=== PATIENT | male | born 1960 | race Caucasian/White ===

== ENCOUNTER 2019-10-16 08:19 | Inpatient (IN) | payer MEDICAID ==
[2019-10-16] MEDS ORDERED: LORazepam 2 MG/ML SDV IVPUSH ONE (08:29)
[2019-10-16] MEDS ORDERED: MVI, Adult with Vitamin K 10 ML, Thiamine 100 MG, Folic Acid 1 MG in Sodium Chloride 0.... IV ONE ×4 (08:29)
[2019-10-16] MEDS ORDERED: Sodium Chloride 0.9% 1,000 ML IV SCH (08:30)
--- NOTE | 2019-10-16 08:43 | EDM.PDOC ---
ED HPI GENERAL MEDICAL PROBLEM - General Chief Complaint: Chest Pain Stated Complaint: CHEST PAIN AND IS SHAKY Time Seen by Provider: 10/16/19 08:22 Source of Information: Reports: Patient History Limitations: Reports: No Limitations - History of Present Illness INITIAL COMMENTS - FREE TEXT/NARRATIVE: This is a 59-year-old male presents to the emergency room chief complaint of stating that he does not feel well. States he feels shaky and his heart is racing. Patient states he usually drinks a sixpack a day and is stopped drinking for the past 4 days. Patient also states that symptoms started after he took Cialis. Patient denies cardiac history but states he smokes a pack a day for 40 years. Patient denies shortness of breath fever or chills. Dates he has on and off chest pain that is related to when he takes a deep breath Duration: Hour(s):, Getting Worse Location: Reports: Chest Severity: Moderate Improves with: Reports: None Worsens with: Reports: Breathing Associated Symptoms: Reports: No Other Symptoms chest Pain Score (Numeric/FACES): 5 - Related Data Allergies Allergy/AdvReac Type Severity Reaction Status Date / Time No Known Allergies Allergy Verified 10/16/19 08:33 Home Meds: Home Meds lisinopriL [Lisinopril] 10 mg PO DAILY 10/16/19 [History] tadalafiL [Cialis] 1 tab PO DAILY 10/16/19 [History] ED ROS GENERAL - Review of Systems Review Of Systems: See Below Constitutional: Reports: Weakness, Fatigue HEENT: Reports: No Symptoms Respiratory: Reports: Pleuritic Chest Pain Cardiovascular: Reports: Chest Pain Endocrine: Reports: Fatigue GI/Abdominal: Reports: Decreased Appetite : Reports: No Symptoms Musculoskeletal: Reports: Muscle Pain Skin: Reports: No Symptoms Neurological: Reports: Tremors, Weakness Psychiatric: Reports: Agitation Hematologic/Lymphatic: Reports: No Symptoms Immunologic: Reports: No Symptoms ED EXAM, GENERAL - Physical Exam Exam: See Below Exam Limited By: No Limitations General Appearance: Alert, Anxious, Moderate Distress Eye Exam: Bilateral Eye: Normal Fundi, Normal Inspection Ear Exam: Bilateral Ear: Auricle Normal, Canal Normal Nose: Normal Inspection, Normal Mucosa Throat/Mouth: Normal Inspection, Normal Lips, Normal Teeth Head: Atraumatic, Normocephalic Neck: Normal Inspection, Supple, Non-Tender Respiratory/Chest: No Respiratory Distress, Lungs Clear, Normal Breath Sounds, No Accessory Muscle Use, Chest Non-Tender Cardiovascular: Normal Peripheral Pulses, Regular Rate, Rhythm, No Edema (Is tachycardic rate of 118 120), Tachycardia GI/Abdominal: Normal Bowel Sounds, Soft, Non-Tender, No Organomegaly, No Distention, No Abnormal Bruit, No Mass (Male) Exam: Deferred Rectal (Males) Exam: Deferred Back Exam: Normal Inspection, Full Range of Motion Extremities: Normal Inspection, Normal Range of Motion, Non-Tender, No Pedal Edema, Normal Capillary Refill Neurological: Alert, Oriented, CN II-XII Intact, Normal Cognition, Normal Reflexes, No Motor/Sensory Deficits Psychiatric: Normal Affect, Normal Mood Skin Exam: Warm, Dry, Intact, Normal Color Lymphatic: No Adenopathy Course - Vital Signs Text/Narrative:: 59-year-old male who presents to the emergency room with chief complaint of feeling bad heart rate is increased some chest pain and and shaking all over. Complains of chest pain when he takes a deep breath and different complaints all over his body. Patient attributes his symptoms to taken Cialis 2 days ago. Patient drinks couple 6 packs every day but has not drank in the past 4 days. Patient also smokes a pack a day for 40 years. On exam patient exhibits signs of alcohol withdrawals. Patient's heart rate is in the 120s to 130s patient seems very agitated. Patient had labs drawn which shows negative cardiac enzymes no abnormal chest x-ray and CBC and electrolytes are normal. Given 1 mg of Ativan a liter of fluids and a banana bag was started on the patient. It seemed to relieve the patient's symptoms. With this patient's history I believe the patient would benefit from patient's for alcohol withdrawals. I have discussed the case with a admitting hospitalist Dr. Horne he agrees and patient will be admitted to [facility] on telemetry bed Last Recorded V/S: Last Vital Signs Temp 98.8 F 10/16/19 08:34 Pulse 128 H 10/16/19 08:34 Resp 18 10/16/19 08:34 BP 176/122 H 10/16/19 08:34 Pulse Ox 98 10/16/19 08:34 - Orders/Labs/Meds Orders: Active Orders 24 hr Category Date Time Status Cardiac Monitoring [RC] . DIRECTED Care 10/16/19 08:29 Active EKG Documentation Completion [RC] STAT Care 10/16/19 08:28 Active UA RFX MAURICE AND CULT IF INDIC [URIN] Stat Lab 10/16/19 08:28 Ordered MVI, Adult with Vitamin K [Infuvite Adult] 10 ml Med 10/16/19 08:29 Active Thiamine [Vitamin B-1] 100 mg Folic Acid 1 mg Sodium Chloride 0.9% [Normal Saline] 1,000 ml IV STAT Sodium Chloride 0.9% [Normal Saline] 1,000 ml Med 10/16/19 08:30 Active IV STAT Medication Orders Sodium Chloride (Normal Saline) 1,000 mls @ 999 mls/hr IV STAT PRAKASH Last Admin: 10/16/19 08:40 Dose: 999 mls/hr Multivitamins/Minerals 10 ml/Thiamine HCl 100 mg/ Folic Acid 1 mg/ Sodium Chloride 1,011.2 mls @ 150 mls/hr IV STAT ONE Stop: 10/16/19 15:13 Last Admin: 10/16/19 09:14 Dose: 150 mls/hr Labs: Laboratory Tests 10/16/19 10/16/19 Range/Units 08:25 08:25 WBC 5.73 (4.0-11.0) K/uL RBC 5.23 (4.50-5.90) M/uL Hgb 18.0 H (13.0-17.0) g/dL Hct 51.9 H (38.0-50.0) % MCV 99.2 H (80.0-98.0) fL MCH 34.4 H (27.0-32.0) pg MCHC 34.7 (31.0-37.0) g/dL RDW Std Deviation 47.6 (28.0-62.0) fl RDW Coeff of Miko 13 (11.0-15.0) % Plt Count 238 (150-400) K/uL MPV 9.90 (7.40-12.00) fL Neut % (Auto) 56.4 (48.0-80.0) % Lymph % (Auto) 26.7 (16.0-40.0) % Yell % (Auto) 15.0 (0.0-15.0) % Eos % (Auto) 0.5 (0.0-7.0) % Baso % (Auto) 1.4 (0.0-1.5) % Neut # (Auto) 3.2 (1.4-5.7) K/uL Lymph # (Auto) 1.5 (0.6-2.4) K/uL Yell # (Auto) 0.9 H (0.0-0.8) K/uL Eos # (Auto) 0.0 (0.0-0.7) K/uL Baso # (Auto) 0.1 (0.0-0.1) K/uL Nucleated RBC % 0.0 /100WBC Nucleated RBCs # 0 K/uL Sodium 133 L (136-148) mmol/L Potassium 4.1 (3.5-5.1) mmol/L Chloride 94 L (98-107) mmol/L Carbon Dioxide 26.9 (21.0-32.0) mmol/L BUN 10 (7.0-18.0) mg/dL Creatinine 1.1 (0.8-1.3) mg/dL Est Cr Clr Drug Dosing 71.68 mL/min Estimated GFR (MDRD) > 60.0 ml/min Glucose 112 H (74-106) mg/dL Calcium 9.2 (8.5-10.1) mg/dL Total Bilirubin 0.9 (0.2-1.0) mg/dL AST 31 (15-37) IU/L ALT 44 (14-63) IU/L Alkaline Phosphatase 100 (46-116) U/L Troponin I < 0.050 (0.000-0.056) ng/mL Total Protein 8.3 H (6.4-8.2) g/dL Albumin 4.4 (3.4-5.0) g/dL Globulin 3.9 (2.6-4.0) g/dL Albumin/Globulin Ratio 1.1 (0.9-1.6) Meds: Medications Generic Name Dose Route Start Last Admin Trade Name Freq PRN Reason Stop Dose Admin Sodium Chloride 1,000 mls @ 999 mls/hr 10/16/19 08:30 10/16/19 08:40 Normal Saline IV 999 mls/hr STAT PRAKASH Administration Multivitamins/Minerals 10 ml/ 1,011.2 mls @ 150 mls/hr 10/16/19 08:29 09:14 Thiamine HCl 100 mg/ Folic IV 10/16/19 15:13 150 mls/hr Acid 1 mg/ Sodium Chloride STAT ONE Administration Discontinued Medications Generic Name Dose Route Start Last Admin Trade Name Erika PRN Reason Stop Dose Admin Lorazepam 1 mg 10/16/19 08:29 10/16/19 08:40 Ativan IVPUSH 10/16/19 08:30 1 mg ONETIME ONE Administration Departure - Departure Time of Disposition: 09:27 Disposition: Admitted As Inpatient 68 Condition: Good Clinical Impression: Alcohol withdrawal Referrals: PCP,None [Primary Care Provider] - Forms: ED Department Discharge Sepsis Event Note - Evaluation Sepsis Screening Result: No Definite Risk - Focused Exam Vital Signs: Vital Signs Temp Pulse Resp BP Pulse Ox 10/16/19 08:34 98.8 F 128 H 18 176/122 H 98 Date Exam was Performed: 10/16/19 Time Exam was Performed: 09:24 - My Orders Last 24 Hours: My Active Orders 10/16/19 08:28 EKG Documentation Completion [RC] STAT UA RFX MAURICE AND CULT IF INDIC [URIN] Stat 10/16/19 08:29 Cardiac Monitoring [RC] . DIRECTED MVI, Adult with Vitamin K [Infuvite Adult] 10 ml Thiamine [Vitamin B-1] 100 mg Folic Acid 1 mg Sodium Chloride 0.9% [Normal Saline] 1,000 ml IV STAT 10/16/19 08:30 Sodium Chloride 0.9% [Normal Saline] 1,000 ml IV STAT - Assessment/Plan Last 24 Hours: My Active Orders 10/16/19 08:28 EKG Documentation Completion [RC] STAT UA RFX MAURICE AND CULT IF INDIC [URIN] Stat 10/16/19 08:29 Cardiac Monitoring [RC] . DIRECTED MVI, Adult with Vitamin K [Infuvite Adult] 10 ml Thiamine [Vitamin B-1] 100 mg Folic Acid 1 mg Sodium Chloride 0.9% [Normal Saline] 1,000 ml IV STAT 10/16/19 08:30 Sodium Chloride 0.9% [Normal Saline] 1,000 ml IV STAT
[2019-10-16 08:59] LABS: BLOOD UREA NITROGEN,BUN 10 mg/dL (7.0-18.0); CARBON DIOXIDE,CO2 26.9 mmol/L (21.0-32.0); CHLORIDE,CL 94 mmol/L (98-107); GLUCOSE RANDOM 112 mg/dL (74-106); POTASSIUM,K 4.1 mmol/L (3.5-5.1); SODIUM,NA 133 mmol/L (136-148)
--- NOTE | 2019-10-16 09:03 | CR ---
Chest: Portable view of the chest was obtained. Comparison: No prior chest imaging is available. Minimal blunting of the right lateral costophrenic angle is seen. Lungs otherwise are clear. Heart size and mediastinum are normal. Degenerative endplate spurring is noted within the spine. Impression: 1. Blunting of the right lateral costophrenic angle. I believe that this is most likely chronic as nothing acute is otherwise seen on portable chest x-ray. Diagnostic code #2 This report was dictated in MDT
--- NOTE | 2019-10-16 09:39 | PCM.HP.2 ---
H&P History of Present Illness - General Date of Service: 10/16/19 Admit Problem/Dx: Admission Diagnosis/Problem Admission Diagnosis/Problem Alcohol withdrawal syndrome - History of Present Illness Initial Comments - Free Text/Narative: The patient is a 59 year old male with PMH of HTN and alcohol use who presented to the ER with intermittent chest pain for the past week and shakiness that started this morning. Chest pain is pressure/sharp at sternum with coughing. States he always coughs due to smoking. When he has the pain it lasts 1 min and has associated SOB and diaphoresis. Denies hx of cardiac disease or family history. Reports that he drinks a 6 pack almost daily but hasn't had a drink in 3 days. Denies hx of alcohol withdrawal or seizure. Has a history of HTN and is supposed to be taking lisinopril 10 mg daily, has been out for a few months since moving here. In the ER, work up revealed no leukocytosis but he is hemoconcentrated. Electrolyte were wnl. Troponin was negative and EKG showed sinus tachycardia with HR of 118. CXR showed no acute cardiopulmonary process. He was given dose of Ativan and his shakiness resolved and his heart rate improved. He was also started on IVF. PCP- none chest Pain Score (Numeric/FACES): 5 - Related Data Allergies/Adverse Reactions: Allergies Allergy/AdvReac Type Severity Reaction Status Date / Time No Known Allergies Allergy Verified 10/16/19 08:33 Home Medications: Home Meds lisinopriL [Lisinopril] 10 mg PO DAILY 10/16/19 [History] tadalafiL [Cialis] 1 tab PO DAILY 10/16/19 [History] Past Medical History HEENT History: Reports: None Cardiovascular History: Reports: Hypertension Respiratory History: Reports: COPD Gastrointestinal History: Reports: None Genitourinary History: Reports: None Musculoskeletal History: Reports: None Neurological History: Reports: None Psychiatric History: Reports: Depression Endocrine/Metabolic History: Reports: None Hematologic History: Reports: None Immunologic History: Reports: None Oncologic (Cancer) History: Reports: None Dermatologic History: Reports: None - Infectious Disease History Infectious Disease History: Reports: None - Past Surgical History Head Surgeries/Procedures: Reports: None HEENT Surgical History: Reports: None Cardiovascular Surgical History: Reports: None Respiratory Surgical History: Reports: None GI Surgical History: Reports: None Male Surgical History: Reports: None Endocrine Surgical History: Reports: None Neurological Surgical History: Reports: None Musculoskeletal Surgical History: Reports: None Oncologic Surgical History: Reports: None Dermatological Surgical History: Reports: None Social & Family History - Family History Family Medical History: Noncontributory - Tobacco Use Smoking Status *Q: Current Every Day Smoker Years of Tobacco use: 45 Packs/Tins Daily: 1 - Caffeine Use Caffeine Use: Reports: Coffee - Alcohol Use Days Per Week of Alcohol Use: 7 Number of Drinks Per Day: 6 Total Drinks Per Week: 42 - Recreational Drug Use Recreational Drug Use: No H&P Review of Systems - Review of Systems: Review Of Systems: See Below General: Reports: No Symptoms HEENT: Reports: No Symptoms Pulmonary: Reports: Shortness of Breath, Cough Cardiovascular: Reports: Chest Pain. Denies: Edema Gastrointestinal: Reports: No Symptoms Genitourinary: Reports: No Symptoms Musculoskeletal: Reports: No Symptoms Skin: Reports: No Symptoms Psychiatric: Reports: No Symptoms Neurological: Reports: Other (shakiness) Hematologic/Lymphatic: Reports: No Symptoms Exam - Exam Exam: See Below - Vital Signs Vital Signs: Last Vital Signs Temp 98.8 F 10/16/19 08:34 Pulse 128 H 10/16/19 08:34 Resp 18 10/16/19 08:34 BP 176/122 H 10/16/19 08:34 Pulse Ox 98 10/16/19 08:34 Weight: 81.647 kg - Exam General: Alert, Oriented, Cooperative HEENT: Conjunctiva Clear, EOMI, Mucosa Moist & Central, Posterior Pharynx Clear, Pupils Equal, Pupils Reactive Lungs: Normal Respiratory Effort, Wheezing Cardiovascular: Regular Rate, Regular Rhythm GI/Abdominal Exam: Normal Bowel Sounds, Soft, Non-Tender, No Distention Extremities: No Pedal Edema Skin: Warm, Dry, Intact Neuro Extensive - Mental Status: Alert, Oriented x3 Psychiatric: Alert, Normal Affect, Normal Mood - Patient Data Lab Results Last 24 hrs: Laboratory Results - last 24 hr 10/16/19 10/16/19 Range/Units 08:25 08:25 WBC 5.73 (4.0-11.0) K/uL RBC 5.23 (4.50-5.90) M/uL Hgb 18.0 H (13.0-17.0) g/dL Hct 51.9 H (38.0-50.0) % MCV 99.2 H (80.0-98.0) fL MCH 34.4 H (27.0-32.0) pg MCHC 34.7 (31.0-37.0) g/dL RDW Std Deviation 47.6 (28.0-62.0) fl RDW Coeff of Miko 13 (11.0-15.0) % Plt Count 238 (150-400) K/uL MPV 9.90 (7.40-12.00) fL Neut % (Auto) 56.4 (48.0-80.0) % Lymph % (Auto) 26.7 (16.0-40.0) % [place] % (Auto) 15.0 (0.0-15.0) % Eos % (Auto) 0.5 (0.0-7.0) % Baso % (Auto) 1.4 (0.0-1.5) % Neut # (Auto) 3.2 (1.4-5.7) K/uL Lymph # (Auto) 1.5 (0.6-2.4) K/uL [place] # (Auto) 0.9 H (0.0-0.8) K/uL Eos # (Auto) 0.0 (0.0-0.7) K/uL Baso # (Auto) 0.1 (0.0-0.1) K/uL Nucleated RBC % 0.0 /100WBC Nucleated RBCs # 0 K/uL Sodium 133 L (136-148) mmol/L Potassium 4.1 (3.5-5.1) mmol/L Chloride 94 L (98-107) mmol/L Carbon Dioxide 26.9 (21.0-32.0) mmol/L BUN 10 (7.0-18.0) mg/dL Creatinine 1.1 (0.8-1.3) mg/dL Est Cr Clr Drug Dosing 71.68 mL/min Estimated GFR (MDRD) > 60.0 ml/min Glucose 112 H (74-106) mg/dL Calcium 9.2 (8.5-10.1) mg/dL Total Bilirubin 0.9 (0.2-1.0) mg/dL AST 31 (15-37) IU/L ALT 44 (14-63) IU/L Alkaline Phosphatase 100 (46-116) U/L Troponin I < 0.050 (0.000-0.056) ng/mL Total Protein 8.3 H (6.4-8.2) g/dL Albumin 4.4 (3.4-5.0) g/dL Globulin 3.9 (2.6-4.0) g/dL Albumin/Globulin Ratio 1.1 (0.9-1.6) Result Diagrams: 10/16/19 08:25 10/16/19 08:25 Sepsis Event Note - Evaluation Sepsis Screening Result: No Definite Risk - Focused Exam Vital Signs: Vital Signs Temp Pulse Resp BP Pulse Ox 10/16/19 08:34 98.8 F 128 H 18 176/122 H 98 Date Exam was Performed: 10/16/19 Time Exam was Performed: 09:40 Problem List Initiated/Reviewed/Updated: Yes Orders Last 24hrs: Active Orders 24 hr Category Date Time Status Admission Status [Patient Status] [ADT] Stat ADT 10/16/19 09:29 Active Cardiac Monitoring [RC] . DIRECTED Care 10/16/19 08:29 Active EKG Documentation Completion [RC] STAT Care 10/16/19 08:28 Active UA RFX MAURICE AND CULT IF INDIC [URIN] Stat Lab 10/16/19 08:28 Ordered MVI, Adult with Vitamin K [Infuvite Adult] 10 ml Med 10/16/19 08:29 Active Thiamine [Vitamin B-1] 100 mg Folic Acid 1 mg Sodium Chloride 0.9% [Normal Saline] 1,000 ml IV STAT Sodium Chloride 0.9% [Normal Saline] 1,000 ml Med 10/16/19 08:30 Active IV STAT Medication Orders Sodium Chloride (Normal Saline) 1,000 mls @ 999 mls/hr IV STAT PRAKASH Last Admin: 10/16/19 08:40 Dose: 999 mls/hr Multivitamins/Minerals 10 ml/Thiamine HCl 100 mg/ Folic Acid 1 mg/ Sodium Chloride 1,011.2 mls @ 150 mls/hr IV STAT ONE Stop: 10/16/19 15:13 Last Admin: 10/16/19 09:14 Dose: 150 mls/hr Assessment/Plan Comment:: 1. Admit to inpatient 2. Code status- full 3. Vitals per routine 4. I/Os per routine 5. Diet- regular 6. DVT prophylaxis with lovenox 7. Chest pain- will monitor on telemetry and trend troponins 8. Alcohol withdrawal- CIWA/Ativan protocol. Will start Thiamine and folic acid. Continue IVF. 9. HTN-Continue home lisinopril
[2019-10-16] MEDS ORDERED: Ondansetron 4 MG/2 ML SDV IVPUSH PRN (10:00)
[2019-10-16] MEDS ORDERED: Albuterol/Ipratropium 3.0-0.5 MG/3 ML Neb Soln NEB PRN (10:00)
[2019-10-16] MEDS ORDERED: Acetaminophen 325 MG Tab PO PRN (10:00)
[2019-10-16] MEDS ORDERED: LORazepam 2 MG/ML SDV IV PRN (10:00)
[2019-10-16] MEDS ORDERED: LORazepam 1 MG Tab PO PRN (10:03)
[2019-10-16] MEDS: Lisinopril 10 MG Tab PO SCH (10:45)
[2019-10-16] MEDS: Enoxaparin 40 MG/0.4 ML Syringe SUBCUT SCH (10:46)
[2019-10-16] MEDS: Sodium Chloride 0.9% 1,000 ML IV SCH (15:48)
[2019-10-16] MEDS ORDERED: Thiamine 100 MG Tab PO SCH (21:00)
[2019-10-16] MEDS ORDERED: Folic Acid 1 MG Tab PO SCH (21:00)
[2019-10-17] MEDS: Sodium Chloride 0.9% 1,000 ML IV SCH ×2 (01:08→08:46)
[2019-10-17 06:15] LABS: BLOOD UREA NITROGEN,BUN 11 mg/dL (7.0-18.0); CARBON DIOXIDE,CO2 25.6 mmol/L (21.0-32.0); CHLORIDE,CL 102 mmol/L (98-107); GLUCOSE RANDOM 102 mg/dL (74-106); SODIUM,NA 135 mmol/L (136-148)
[2019-10-17] MEDS: Lisinopril 10 MG Tab PO SCH (08:32)
[2019-10-17] MEDS: Enoxaparin 40 MG/0.4 ML Syringe SUBCUT SCH (09:23)
--- NOTE | 2019-10-17 10:57 | PCM.DCSUM1 ---
<Eloise Hartley - Last Filed: 10/17/19 11:15> Discharge Summary - Hospital Course HPI Initial Comments: Admission Date: 10/16/19 Discharge Date: 10/17/19 Admission Diagnosis: 1. Chest pain 2. Alcohol withdrawal 3. HTN Discharge Diagnosis: 1. Chest pain- resolved 2. Alcohol withdrawal- resolved 3. HTN Procedures: None Consults: None Hospital Course: The patient is a 59 year old male with PMH of HTN and alcohol use who presented to the ER with intermittent chest pain for the past week and shakiness that started day of admission. Reported that he drinks a 6 pack almost daily but hasn't had a drink in 3 days. Denied hx of alcohol withdrawal or seizure. In the ER, work up revealed no leukocytosis but he is hemoconcentrated. Electrolyte were wnl. Troponin was negative and EKG showed sinus tachycardia with HR of 118. CXR showed no acute cardiopulmonary process. He was given dose of Ativan and his shakiness resolved and his heart rate improved. He was also started on IVF. He was admitted to the medical floor. For his chest pain, troponins were trended and negative x 3. He was monitored on telemetry without any significant events. For his alcohol use, he was placed on CIWAA/Ativan protocol and started on thiamine and folic acid. He did not require any Ativan while admitted. He was continued on his home lisinopril. By day of discharge, symptoms had improved, and he was requesting discharge. Disposition: Home Discharge Condition: vitals stable, tolerating oral diet, ambulating without difficulty, symptom improvement Discharge Instructions: regular diet as tolerated, avoid alcohol, activity as tolerated, take medications as prescribed. Symptoms to report to physician include fever/chills, chest pain, shortness of breath, abdominal pain, erythema , drainage/discharge, or not improving as expected. Discharge Medications: Lisinopril 20 mg po daily Follow-up: 1. PCP- Marjorie 2. Outpatient stress test - Discharge Data Discharge Date: 10/17/19 Discharge Disposition: Home, Self-Care 01 Condition: Fair - Referral to Home Health Primary Care Physician: PCP None - Patient Instructions Diet: Heart Healthy Diet, No Alcoholic Beverages Activity: As Tolerated Showering/Bathing: May Shower Notify Provider of: Fever, Increased Pain, Swelling and Redness, Drainage, Nausea and/or Vomiting Other/Special Instructions: Additional symptoms include chest pain, shortness of breath, or abdominal pain. You will be set up with a outpatient stress test. - Discharge Plan *PRESCRIPTION DRUG MONITORING PROGRAM REVIEWED*: No *COPY OF PRESCRIPTION DRUG MONITORING REPORT IN PATIENT COURTNEY: No Prescriptions/Med Rec: lisinopriL [Prinivil] 20 mg PO DAILY 30 Days #30 tablet Home Medications: Home Meds lisinopriL [Lisinopril] 10 mg PO DAILY 10/16/19 [History] lisinopriL [Prinivil] 20 mg PO DAILY 30 Days #30 tablet 10/17/19 [Rx] Patient Handouts: Lisinopril tablets, Alcohol Withdrawal Syndrome, [id number] Referrals: Rosa Amador NP [Nurse Practitioner] - 10/23/19 2:45 pm - Discharge Summary/Plan Comment DC Time >30 min.: No - Patient Data Vitals - Most Recent: Last Vital Signs Temp 98.2 F 10/17/19 08:00 Pulse 76 10/17/19 08:00 Resp 16 10/17/19 08:00 BP 134/95 H 10/17/19 09:22 Pulse Ox 94 L 10/17/19 04:00 Weight - Most Recent: 83.869 kg I&O - Last 24 hours: Intake & Output 10/16/19 10/17/19 10/17/19 22:59 06:59 14:59 Intake Total 1380 2290 Output Total 2800 Balance 1380 -510 Lab Results - Last 24 hrs: Laboratory Results - last 24 hr 10/16/19 10/16/19 10/16/19 Range/Units 11:22 14:08 20:05 WBC (4.0-11.0) K/uL RBC (4.50-5.90) M/uL Hgb (13.0-17.0) g/dL Hct (38.0-50.0) % MCV (80.0-98.0) fL MCH (27.0-32.0) pg MCHC (31.0-37.0) g/dL RDW Std Deviation (28.0-62.0) fl RDW Coeff of Miko (11.0-15.0) % Plt Count (150-400) K/uL MPV (7.40-12.00) fL Neut % (Auto) (48.0-80.0) % Lymph % (Auto) (16.0-40.0) % [place] % (Auto) (0.0-15.0) % Eos % (Auto) (0.0-7.0) % Baso % (Auto) (0.0-1.5) % Neut # (Auto) (1.4-5.7) K/uL Lymph # (Auto) (0.6-2.4) K/uL [place] # (Auto) (0.0-0.8) K/uL Eos # (Auto) (0.0-0.7) K/uL Baso # (Auto) (0.0-0.1) K/uL Nucleated RBC % /100WBC Nucleated RBCs # K/uL Sodium (136-148) mmol/L Potassium (3.5-5.1) mmol/L Chloride (98-107) mmol/L Carbon Dioxide (21.0-32.0) mmol/L BUN (7.0-18.0) mg/dL Creatinine (0.8-1.3) mg/dL Est Cr Clr Drug Dosing mL/min Estimated GFR (MDRD) ml/min Glucose (74-106) mg/dL Calcium (8.5-10.1) mg/dL Troponin I < 0.050 < 0.050 (0.000-0.056) ng/mL Urine Color YELLOW Urine Appearance CLEAR Urine pH 6.5 (5.0-8.0) Ur Specific [place] 1.015 (1.001-1.035) Urine Protein NEGATIVE (NEGATIVE) mg/dL Urine Glucose (UA) NEGATIVE (NEGATIVE) mg/dL Urine Ketones 15 H (NEGATIVE) mg/dL Urine Occult Blood NEGATIVE (NEGATIVE) Urine Nitrite NEGATIVE (NEGATIVE) Urine Bilirubin NEGATIVE (NEGATIVE) Urine Urobilinogen 0.2 (<2.0) EU/dL Ur Leukocyte Esterase NEGATIVE (NEGATIVE) 10/17/19 10/17/19 Range/Units 05:35 05:35 WBC 4.09 (4.0-11.0) K/uL RBC 4.47 L (4.50-5.90) M/uL Hgb 15.0 (13.0-17.0) g/dL Hct 44.7 (38.0-50.0) % MCV 100.0 H (80.0-98.0) fL MCH 33.6 H (27.0-32.0) pg MCHC 33.6 (31.0-37.0) g/dL RDW Std Deviation 48.4 (28.0-62.0) fl RDW Coeff of Miko 13 (11.0-15.0) % Plt Count 216 (150-400) K/uL MPV 10.10 (7.40-12.00) fL Neut % (Auto) 48.9 (48.0-80.0) % Lymph % (Auto) 32.8 (16.0-40.0) % [place] % (Auto) 15.6 H (0.0-15.0) % Eos % (Auto) 2.0 (0.0-7.0) % Baso % (Auto) 0.7 (0.0-1.5) % Neut # (Auto) 2.0 (1.4-5.7) K/uL Lymph # (Auto) 1.3 (0.6-2.4) K/uL [place] # (Auto) 0.6 (0.0-0.8) K/uL Eos # (Auto) 0.1 (0.0-0.7) K/uL Baso # (Auto) 0.0 (0.0-0.1) K/uL Nucleated RBC % 0.0 /100WBC Nucleated RBCs # 0 K/uL Sodium 135 L (136-148) mmol/L Potassium 4.0 (3.5-5.1) mmol/L Chloride 102 (98-107) mmol/L Carbon Dioxide 25.6 (21.0-32.0) mmol/L BUN 11 (7.0-18.0) mg/dL Creatinine 0.9 (0.8-1.3) mg/dL Est Cr Clr Drug Dosing 87.61 mL/min Estimated GFR (MDRD) > 60.0 ml/min Glucose 102 (74-106) mg/dL Calcium 8.2 L (8.5-10.1) mg/dL Troponin I (0.000-0.056) ng/mL Urine Color Urine Appearance Urine pH (5.0-8.0) Ur Specific [place] (1.001-1.035) Urine Protein (NEGATIVE) mg/dL Urine Glucose (UA) (NEGATIVE) mg/dL Urine Ketones (NEGATIVE) mg/dL Urine Occult Blood (NEGATIVE) Urine Nitrite (NEGATIVE) Urine Bilirubin (NEGATIVE) Urine Urobilinogen (<2.0) EU/dL Ur Leukocyte Esterase (NEGATIVE) Med Orders - Current: Current Medications Acetaminophen (Tylenol) 650 mg PO Q4H PRN PRN Reason: Pain/Fever Albuterol/Ipratropium (Duoneb 3.0-0.5 Mg/3 Ml) 3 ml NEB Q4HRRT PRN PRN Reason: Wheezing Last Admin: 10/17/19 08:22 Dose: 3 ml Enoxaparin Sodium (Lovenox) 40 mg SUBCUT Q24H [facility] Last Admin: 10/17/19 09:23 Dose: 40 mg Folic Acid (Folic Acid) 1 mg PO BEDTIME PRAKASH Last Admin: 10/16/19 20:32 Dose: 1 mg Sodium Chloride (Normal Saline) 1,000 mls @ 999 mls/hr IV STAT PRAKASH Last Admin: 10/16/19 08:40 Dose: 999 mls/hr Sodium Chloride (Normal Saline) 1,000 mls @ 125 mls/hr IV STAT PRAKASH Last Admin: 10/17/19 08:46 Dose: 125 mls/hr Lisinopril (Prinivil) 10 mg PO DAILY [facility] Last Admin: 10/17/19 08:32 Dose: 10 mg Lorazepam (Ativan) 0 mg IV Q4H PRN; Protocol PRN Reason: Withdrawal Symptoms Lorazepam (Ativan) 0 mg PO Q4H PRN; Protocol PRN Reason: Withdrawal Symptoms Ondansetron HCl (Zofran) 4 mg IVPUSH Q4H PRN PRN Reason: Nausea/Vomiting Thiamine HCl (Vitamin B-1) 100 mg PO BEDTIME PRAKASH Last Admin: 10/16/19 20:32 Dose: 100 mg Discontinued Medications Multivitamins/Minerals 10 ml/Thiamine HCl 100 mg/ Folic Acid 1 mg/ Sodium Chloride 1,011.2 mls @ 150 mls/hr IV STAT ONE Stop: 10/16/19 15:13 Last Admin: 10/16/19 09:14 Dose: 150 mls/hr Lorazepam (Ativan) 1 mg IVPUSH ONETIME ONE Stop: 10/16/19 08:30 Last Admin: 10/16/19 08:40 Dose: 1 mg <Minh Horne J - Last Filed: 10/19/19 19:05> Discharge Summary - Referral to Home Health Primary Care Physician: PCP None - Patient Data Vitals - Most Recent: Last Vital Signs Temp 36.8 C 10/17/19 08:00 Pulse 76 10/17/19 08:00 Resp 16 10/17/19 08:00 BP 134/95 H 10/17/19 09:22 Pulse Ox 94 L 10/17/19 04:00 Med Orders - Current: Current Medications Discontinued Medications Acetaminophen (Tylenol) 650 mg PO Q4H PRN PRN Reason: Pain/Fever Albuterol/Ipratropium (Duoneb 3.0-0.5 Mg/3 Ml) 3 ml NEB Q4HRRT PRN PRN Reason: Wheezing Last Admin: 10/17/19 08:22 Dose: 3 ml Enoxaparin Sodium (Lovenox) 40 mg SUBCUT Q24H [facility] Last Admin: 10/17/19 09:23 Dose: 40 mg Folic Acid (Folic Acid) 1 mg PO BEDTIME [facility] Last Admin: 10/16/19 20:32 Dose: 1 mg Sodium Chloride (Normal Saline) 1,000 mls @ 999 mls/hr IV STAT [facility] Last Admin: 10/16/19 08:40 Dose: 999 mls/hr Multivitamins/Minerals 10 ml/Thiamine HCl 100 mg/ Folic Acid 1 mg/ Sodium Chloride 1,011.2 mls @ 150 mls/hr IV STAT ONE Stop: 10/16/19 15:13 Last Admin: 10/16/19 09:14 Dose: 150 mls/hr Sodium Chloride (Normal Saline) 1,000 mls @ 125 mls/hr IV STAT PRAKASH Last Admin: 10/17/19 08:46 Dose: 125 mls/hr Lisinopril (Prinivil) 10 mg PO DAILY [facility] Last Admin: 10/17/19 08:32 Dose: 10 mg Lorazepam (Ativan) 1 mg IVPUSH ONETIME ONE Stop: 10/16/19 08:30 Last Admin: 10/16/19 08:40 Dose: 1 mg Lorazepam (Ativan) 0 mg IV Q4H PRN; Protocol PRN Reason: Withdrawal Symptoms Lorazepam (Ativan) 0 mg PO Q4H PRN; Protocol PRN Reason: Withdrawal Symptoms Ondansetron HCl (Zofran) 4 mg IVPUSH Q4H PRN PRN Reason: Nausea/Vomiting Thiamine HCl (Vitamin B-1) 100 mg PO BEDTIME PRAKASH Last Admin: 10/16/19 20:32 Dose: 100 mg - Free Text/Narrative Note: I have seen and examined the patient. I have discussed findings and treatment plan with resident. I agree with the assessment and plan as outlined in the following note.
== END 2019-10-17 12:30 | disposition home or self-care (01) | DRG 897 ==
LOC: MW.ED 08:19 → MW.MS 09:46
PROVIDERS: ADMIT Internal Medicine; ATTEND Internal Medicine
DX: F10.239 Alcohol dependence with withdrawal, unspecified (principal); R07.89 Other chest pain; J44.9 Chronic obstructive pulmonary disease, unspecified; I10 Essential (primary) hypertension; F17.210 Nicotine dependence, cigarettes, uncomplicated; R00.0 Tachycardia, unspecified; Z79.899 Other long term (current) drug therapy
CPT/HCPCS: 36415; 71045; 71045-26; 80048; 80053; 81003; 84484; 85025; 93005; 94640; 96374; 96375; 99284; 99285-25; A9270-GY; J1650; J2060; J3411; J7030; J7620-GY

== ENCOUNTER 2020-03-21 13:24 | Emergency (ER) | payer MEDICAID ==
--- NOTE | 2020-03-21 15:16 | EDM.PDOC ---
ED HPI GENERAL MEDICAL PROBLEM - General Chief Complaint: Skin Complaint Stated Complaint: RASH Time Seen by Provider: 03/21/20 15:05 - History of Present Illness INITIAL COMMENTS - FREE TEXT/NARRATIVE: History of present illness: Patient presents with a rash on his arms and trunk and also concerns about a rash on his groin. 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 He denies any fever chills he denies any IV drug abuse he denies any cough congestion runny nose no difficulty breathing no difficulty with swallowing. There are no new medications nothing makes the itching better or worse has tried several [id number] ointments Review of systems: As per history of present illness and below otherwise all systems reviewed and negative. Past medical history: As per history of present illness and as reviewed below otherwise noncontributory. Surgical history: As per history of present illness and as reviewed below otherwise noncontributory. Social history: No reported history of drug or alcohol abuse. Family history: As per history of present illness and as reviewed below otherwise noncontributory. Physical exam: HEENT: Atraumatic, normocephalic, pupils reactive, negative for conjunctival pallor or scleral icterus, mucous membranes moist, throat clear, neck supple, nontender, trachea midline. Lungs: Clear to auscultation, breath sounds equal bilaterally, chest nontender. Heart: S1S2, regular, negative for clicks, rubs, or JVD. Abdomen: Soft, nondistended, nontender. Negative for masses or hepatosplenomegaly. Negative for costovertebral tenderness. Pelvis: Stable nontender. Genitourinary: The skin of the genitourinary region is excoriated cracked or reddened with satellite lesions consistent with a tinea infection. Rectal: Deferred. Extremities: Atraumatic, negative for cords or calf pain. Neurovascular unremarkable. Neuro: Awake, alert, oriented. Cranial nerves II through XII unremarkable. Cerebellum unremarkable. Motor and sensory unremarkable throughout. Exam n onfocal. Skin: Diffuse maculopapular rashes that have been excoriated on the upper extremities and trunk. There is no petechia the lesions are blanchable Diagnostics: [] Therapeutics: [] Impression: Tinea cruris and contact dermatitis both [] Plan: Patient be discharged home with instructions to avoid any substances while working [] Definitive disposition and diagnosis as appropriate pending reevaluation and review of above. - Related Data Allergies Allergy/AdvReac Type Severity Reaction Status Date / Time No Known Allergies Allergy Verified 10/16/19 10:24 Home Meds: Home Meds lisinopriL [Prinivil] 20 mg PO DAILY 30 Days #30 tablet 10/17/19 [Rx] Past Medical History HEENT History: Reports: None Cardiovascular History: Reports: Hypertension Respiratory History: Reports: COPD Gastrointestinal History: Reports: None Genitourinary History: Reports: None Musculoskeletal History: Reports: None Neurological History: Reports: None Psychiatric History: Reports: Depression Endocrine/Metabolic History: Reports: None Hematologic History: Reports: None Immunologic History: Reports: None Oncologic (Cancer) History: Reports: None Dermatologic History: Reports: None - Infectious Disease History Infectious Disease History: Reports: Chicken Pox - Past Surgical History Head Surgeries/Procedures: Reports: None HEENT Surgical History: Reports: None Cardiovascular Surgical History: Reports: None Respiratory Surgical History: Reports: None GI Surgical History: Reports: None Male Surgical History: Reports: None Endocrine Surgical History: Reports: None Neurological Surgical History: Reports: None Musculoskeletal Surgical History: Reports: None Oncologic Surgical History: Reports: None Dermatological Surgical History: Reports: None Social & Family History - Family History Family Medical History: Noncontributory - Caffeine Use Caffeine Use: Reports: Coffee, Soda ED ROS GENERAL - Review of Systems Review Of Systems: See Below ED EXAM, SKIN/RASH Exam: See Below Course - Vital Signs Text/Narrative:: Patient be discharged home with ciclopirox for his groin and with Atarax for his itching and prednisone for the itching. Appointment with his doctor on and is to follow-up there for further care It is noted the patient is tachycardic I recommended further evaluation of the tachycardia and the patient states he is just anxious and does not want any further investigations done he understands I could miss something serious he was warned. Departure - Departure Time of Disposition: 14:20 Disposition: Home, Self-Care 01 Condition: Good Clinical Impression: Contact dermatitis, Tinea cruris - Discharge Information *PRESCRIPTION DRUG MONITORING PROGRAM REVIEWED*: Not Applicable *COPY OF PRESCRIPTION DRUG MONITORING REPORT IN PATIENT COURTNEY: Not Applicable Instructions: Rash, Adult
== END 2020-03-21 14:27 | disposition home or self-care (01) ==
LOC: MW.ED 13:24
DX: B35.6 Tinea cruris (principal); L25.9 Unspecified contact dermatitis, unspecified cause; I10 Essential (primary) hypertension; J44.9 Chronic obstructive pulmonary disease, unspecified; Z79.899 Other long term (current) drug therapy
CPT/HCPCS: 99282

== ENCOUNTER 2020-06-16 08:43 | Emergency (ER) | payer MEDICAID ==
[2020-06-16] MEDS: Acetaminophen/oxyCODONE 325-5 MG Tab PO ONE (09:19)
--- NOTE | 2020-06-16 09:20 | EDM.PDOC ---
ED HPI GENERAL MEDICAL PROBLEM - General Chief Complaint: Lower Extremity Injury/Pain Stated Complaint: POSSIBLY NEEDS XRAY Time Seen by Provider: 06/16/20 08:58 Source of Information: Reports: Patient History Limitations: Reports: No Limitations - History of Present Illness INITIAL COMMENTS - FREE TEXT/NARRATIVE: Pt is a 60-year-old male who presents today for right ankle pain and swelling. Patient states that he had an operation done with 30 years ago where the hardware was placed into his ankle. He states that he has been walking around a lot more trying to get back to work and his ankle now swollen and painful. Patient denies any redness warmth or fevers or chills or nausea or vomiting. Patient again denied any trauma. Whole body Pain Score (Numeric/FACES): 7 - Related Data Allergies Allergy/AdvReac Type Severity Reaction Status Date / Time No Known Allergies Allergy Verified 06/16/20 09:00 Home Meds: Home Meds lisinopriL [Prinivil] 20 mg PO DAILY 30 Days #30 tablet 10/17/19 [Rx] Clindamycin HCl 450 mg PO Q8HR 7 Days #63 capsule 06/16/20 [Rx] Clobetasol [Clobetasol 0.05%] 1 applic TOP BID 06/16/20 [History] Triamcinolone Acetonide [Triamcinolone Acetonide 0.1% Crm] 1 applic TOP BID 06/16/20 [History] Past Medical History HEENT History: Reports: None Cardiovascular History: Reports: Hypertension Respiratory History: Reports: COPD Gastrointestinal History: Reports: None Genitourinary History: Reports: None Musculoskeletal History: Reports: None Neurological History: Reports: None Psychiatric History: Reports: Depression Endocrine/Metabolic History: Reports: None Hematologic History: Reports: None Immunologic History: Reports: None Oncologic (Cancer) History: Reports: None Dermatologic History: Reports: None - Infectious Disease History Infectious Disease History: Reports: Chicken Pox - Past Surgical History Head Surgeries/Procedures: Reports: None HEENT Surgical History: Reports: None Cardiovascular Surgical History: Reports: None Respiratory Surgical History: Reports: None GI Surgical History: Reports: None Male Surgical History: Reports: None Endocrine Surgical History: Reports: None Neurological Surgical History: Reports: None Musculoskeletal Surgical History: Reports: None Oncologic Surgical History: Reports: None Dermatological Surgical History: Reports: None Social & Family History - Family History Family Medical History: No Pertinent Family History - Caffeine Use Caffeine Use: Reports: Coffee, Soda - Recreational Drug Use Recreational Drug Use: No Review of Systems - Review of Systems Review Of Systems: See Below Constitutional: Reports: No Symptoms Eyes: Reports: No Symptoms Ears: Reports: No Symptoms Nose: Reports: No Symptoms Mouth/Throat: Reports: No Symptoms Respiratory: Reports: No Symptoms Cardiovascular: Reports: No Symptoms GI/Abdominal: Reports: No Symptoms Genitourinary: Reports: No Symptoms Musculoskeletal: Reports: Joint Pain, Joint Swelling Skin: Reports: Rash Neurological: Reports: No Symptoms Psychiatric: Reports: No Symptoms ED EXAM, GENERAL - Physical Exam Exam: See Below Exam Limited By: No Limitations General Appearance: Alert, WD/WN Respiratory/Chest: No Respiratory Distress, Lungs Clear Cardiovascular: Normal Peripheral Pulses, Regular Rate, Rhythm Peripheral Pulses: 2+: Dorsalis Pedis (L), Dorsalis Pedis (R) Extremities: Joint Swelling, Other (rt ankle is swollen and tender to touch some warmth ) Neurological: Alert, Oriented Skin Exam: Rash (to bottom of feet) Course - Vital Signs Last Recorded V/S: Last Vital Signs Temp 97.3 F 06/16/20 09:02 Pulse 114 H 06/16/20 09:02 Resp 17 06/16/20 09:02 BP 148/102 H 06/16/20 09:02 Pulse Ox 98 06/16/20 09:02 - Orders/Labs/Meds Labs: Laboratory Tests 06/16/20 06/16/20 06/16/20 Range/Units 09:26 09:26 09:26 WBC 11.81 H (4.0-11.0) K/uL RBC 4.33 L (4.50-5.90) M/uL Hgb 14.3 (13.0-17.0) g/dL Hct 42.2 (38.0-50.0) % MCV 97.5 (80.0-98.0) fL MCH 33.0 H (27.0-32.0) pg MCHC 33.9 (31.0-37.0) g/dL RDW Std Deviation 43.6 (28.0-62.0) fl RDW Coeff of Miko 13 (11.0-15.0) % Plt Count 298 (150-400) K/uL MPV 9.50 (7.40-12.00) fL Neut % (Auto) 80.7 H (48.0-80.0) % Lymph % (Auto) 9.4 L (16.0-40.0) % [place] % (Auto) 8.2 (0.0-15.0) % Eos % (Auto) 1.4 (0.0-7.0) % Baso % (Auto) 0.3 (0.0-1.5) % Neut # (Auto) 9.5 H (1.4-5.7) K/uL Lymph # (Auto) 1.1 (0.6-2.4) K/uL [place] # (Auto) 1.0 H (0.0-0.8) K/uL Eos # (Auto) 0.2 (0.0-0.7) K/uL Baso # (Auto) 0.0 (0.0-0.1) K/uL ESR 56 H (0-19) mm/hr Sodium 135 L (136-148) mmol/L Potassium 4.3 (3.5-5.1) mmol/L Chloride 98 (98-107) mmol/L Carbon Dioxide 25.1 (21.0-32.0) mmol/L BUN 10 (7.0-18.0) mg/dL Creatinine 0.9 (0.8-1.3) mg/dL Est Cr Clr Drug Dosing 86.56 mL/min Estimated GFR (MDRD) > 60.0 ml/min Glucose 105 (74-106) mg/dL Calcium 9.1 (8.5-10.1) mg/dL C-Reactive Protein 12.30 H (0.00-0.90) mg/dL Meds: Medications Discontinued Medications Generic Name Dose Route Start Last Admin Trade Name Freq PRN Reason Stop Dose Admin Oxycodone/Acetaminophen 1 tab 06/16/20 09:14 06/16/20 09:19 Percocet 325-5 Mg PO 06/16/20 09:15 1 tab ONETIME ONE Administration - Re-Assessments/Exams Free Text/Narrative Re-Assessment/Exam: 06/16/20 10:33 Pt has no pain with ranging of the joint skin above it is red and warm we will treat for cellulitis. Patient will be given strict instructions to follow-up with orthopedics this week. Departure - Departure Time of Disposition: 10:33 Disposition: Home, Self-Care 01 Condition: Good Clinical Impression: Cellulitis - Discharge Information *PRESCRIPTION DRUG MONITORING PROGRAM REVIEWED*: Not Applicable *COPY OF PRESCRIPTION DRUG MONITORING REPORT IN PATIENT COURTNEY: Not Applicable Prescriptions: Clindamycin HCl 450 mg PO Q8HR 7 Days #63 capsule Instructions: Cellulitis, Adult Referrals: Doc Yadav MD [Primary Care Provider] - Forms: ED Department Discharge Additional Instructions: The following information is given to patients seen in the emergency department who are being discharged to home. This information is to outline your options for follow-up care. We provide all patients seen in our emergency department with a follow-up referral. The need for follow-up, as well as the timing and circumstances, are variable depending upon the specifics of your emergency department visit. If you don't have a primary care physician on staff, we will provide you with a referral. We always advise you to contact your personal physician following an emergency department visit to inform them of the circumstance of the visit and for follow-up with them and/or the need for any referrals to a consulting specialist. The emergency department will also refer you to a specialist when appropriate. This referral assures that you have the opportunity for follow-up care with a specialist. All of these measure are taken in an effort to provide you with optimal care, which includes your follow-up. Under all circumstances we always encourage you to contact your private physician who remains a resource for coordinating your care. When calling for follow-up care, please make the office aware that this follow-up is from your recent emergency room visit. If for any reason you are refused follow-up, please contact the [facility] Emergency Department at and asked to speak to the emergency department charge nurse. Please follow up with your primary care physician. If you do not have a primary care physician, see below: [facility] - Orthopedic Clinic Professional Building [address] [place] [address], [address] [place] [address] You can follow-up with orthopedics this week. If you have any additional Plaints please return to the ED. Your antibiotics as prescribed. Sepsis Event Note (ED) - Evaluation Sepsis Screening Result: No Definite Risk - Focused Exam Vital Signs: Vital Signs Temp Pulse Resp BP Pulse Ox 06/16/20 09:02 97.3 F 114 H 17 148/102 H 98 - Assessment/Plan Assessment:: Pt is a 60-year-old male who had previous hardware placed in his ankle almost 30 years ago presents today with ankle pain and swelling had no recent injuries to the ankle patient has been standing a lot more trying to get back to work. The ankle is swollen and firm. Patient has good pulses. Will obtain labs and x-ray and reassess.
[2020-06-16 09:56] LABS: BLOOD UREA NITROGEN,BUN 10 mg/dL (7.0-18.0); CARBON DIOXIDE,CO2 25.1 mmol/L (21.0-32.0); CHLORIDE,CL 98 mmol/L (98-107); GLUCOSE RANDOM 105 mg/dL (74-106); POTASSIUM,K 4.3 mmol/L (3.5-5.1); SODIUM,NA 135 mmol/L (136-148)
--- NOTE | 2020-06-16 10:00 | CR ---
HISTORY: Ankle pain and swelling. Remote fracture. TECHNIQUE: Right ankle 3 views. COMPARISON: None. FINDINGS: Distal fibula plate and screws. [employer] malleolus plate and screws. Medial malleolus screw. Hardware appears intact. No acute fracture. 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 Plantar calcaneal enthesophyte. No erosions. Soft tissue swelling. IMPRESSION: Soft tissue swelling. No acute bone abnormality. 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 Dictated by Kip Alcantara MD @ Jun 16 2020 9:57AM Signed by Dr. Kip Alcantara @ Jun 16 2020 9:59AM
[2020-06-16] MEDS: Clindamycin HCl 150 MG Cap PO STA (10:41)
== END 2020-06-16 10:44 | disposition home or self-care (01) ==
LOC: MW.ED 08:43
DX: L03.115 Cellulitis of right lower limb (principal); I10 Essential (primary) hypertension; J44.9 Chronic obstructive pulmonary disease, unspecified; Z79.899 Other long term (current) drug therapy
CPT/HCPCS: 36415; 73610; 80048; 85025; 85652; 86140; 99283; A9270

== ENCOUNTER 2020-08-16 12:01 | Emergency (ER) | payer SELFPAY ==
[2020-08-16] MEDS ORDERED: Sodium Chloride 0.9% 2.5 ML Syringe FLUSH PRN (12:54)
[2020-08-16] MEDS ORDERED: Sodium Chloride 0.9% 10 ML Syringe FLUSH PRN (12:54)
--- NOTE | 2020-08-16 13:01 | EDM.PDOC ---
ED HPI GENERAL MEDICAL PROBLEM - General Chief Complaint: Skin Complaint Stated Complaint: CELLULITIS Time Seen by Provider: 08/16/20 12:44 - History of Present Illness INITIAL COMMENTS - FREE TEXT/NARRATIVE: History of present illness: The patient is dealing with redness and swelling of his right lower extremity with pain in the ankle since late April 2020. He has seen physician almost every other week and has been in the emergency room in June. The area where he had a remote injury with instrumentation and where placed in the right ankle has started having a sharp knifelike pain when he steps on it. The pain comes up through the heel. Its associated with swelling of the right lower extremity. The swelling is greatly increased. There was redness and warmth before and he has been treated once with clindamycin by my partner and twice by his primary doctor with Augmentin. The swelling and redness and pain continue to progress. Now he has mottling up to the mid thigh a plaque that looks psoriatic on the l eft ankle and blanching red rash on his extremities x4. The patient does not have systemic signs of illness. The patient saw a flame cutter for the new plaque on the left ankle and had test done. He was told they were inconclusive and he needed more test. He felt like it spent enough money already on dermatology and felt like he could not go back. The patient seems to expect that the emergency physician today can answer the questions about this multimonth illness and he has done his own research on the Internet and feels like it may be a life-threatening or limb threatening condition. I assured him I will try my best to find out what I can add or contribute to the knowledge of his condition and treatment to try to help him resolve it. [] Review of systems: As per history of present illness and below otherwise all systems reviewed and negative. Past medical history: Is not diabetic. As per history of present illness and as reviewed below otherwise noncontributory. Surgical history: As per history of present illness and as reviewed below otherwise noncontributory. Social history: Patient smokes. No reported history of drug or alcohol abuse. Family history: As per history of present illness and as reviewed below otherwise noncontributory. Physical exam: Constitutional - well developed, well-nourished and in no acute distress HEENT - normocephalic, no evidence of trauma - external nose and mouth normal - no mass in neck and no JVD - mucosae moist EYES - full EOM, PERRL, no icterus - no evidence of inflammation, injection, or drainage Respiratory - no respiratory distress, equal bilateral expansion, lungs clear to auscultation and no abnormal lung sounds Cardiovascular - Regular Rhythm with S1 and S2 appreciated and no murmur, gallop or rub. GI - abdomen soft without distension or organomegaly - normal bowel sounds - no guard or rebound Musculoskeletal swelling and tenderness of the right lower extremity from mid thigh down. Otherwise no gross deformity of long bones or joints - no tenderness, swelling or edema Neurologic - Alert and oriented times four - CN II-XII grossly intact - motor sensory and coordination symmetrically normal Psychiatric - appropriate mood and affect with normal thought content Hematologic - No petechiae or purpura - mucosa appropriate color and sclera not pale - normal nail bed color and refill Integument -there is mottling of the right lower extremity from the upper thigh down. There is redness with warmth of the lower half of the right lower extremity below the knee. There is a plaque that appears psoriatic and waxy on the left medial ankle. The patient has Yoni macules that are erythematous over both upper extremities. No evidence of trauma - normal turgor Diagnostics: [] Therapeutics: [] Impression: [] Plan: [] Definitive disposition and diagnosis as appropriate pending reevaluation and review of above. Right leg Pain Score (Numeric/FACES): 10 - Related Data Allergies Allergy/AdvReac Type Severity Reaction Status Date / Time No Known Allergies Allergy Verified 08/16/20 12:44 Home Meds: Home Meds lisinopriL [Prinivil] 20 mg PO DAILY 30 Days #30 tablet 10/17/19 [Rx] Clindamycin HCl 450 mg PO Q8HR 7 Days #63 capsule 06/16/20 [Rx] Doxycycline [Vibramycin] 100 mg PO BID #28 tab 08/16/20 [Rx] diphenhydrAMINE [Benadryl] 25 mg PO Q8H #21 cap 08/16/20 [Rx] Past Medical History HEENT History: Reports: None Cardiovascular History: Reports: Hypertension Respiratory History: Reports: COPD Gastrointestinal History: Reports: None Genitourinary History: Reports: None Musculoskeletal History: Reports: None Neurological History: Reports: None Psychiatric History: Reports: Depression Endocrine/Metabolic History: Reports: None Hematologic History: Reports: None Immunologic History: Reports: None Oncologic (Cancer) History: Reports: None Dermatologic History: Reports: None - Infectious Disease History Infectious Disease History: Reports: Chicken Pox - Past Surgical History Head Surgeries/Procedures: Reports: None HEENT Surgical History: Reports: None Cardiovascular Surgical History: Reports: None Respiratory Surgical History: Reports: None GI Surgical History: Reports: None Male Surgical History: Reports: None Endocrine Surgical History: Reports: None Neurological Surgical History: Reports: None Musculoskeletal Surgical History: Reports: None Oncologic Surgical History: Reports: None Dermatological Surgical History: Reports: None Social & Family History - Family History Family Medical History: No Pertinent Family History - Tobacco Use Tobacco Use Status *Q: Current Every Day Tobacco User Years of Tobacco use: 40 Packs/Tins Daily: 0.7 - Caffeine Use Caffeine Use: Reports: Coffee - Recreational Drug Use Recreational Drug Use: No ED ROS GENERAL - Review of Systems Review Of Systems: Comprehensive ROS is negative, except as noted in HPI. ED EXAM, GENERAL - Physical Exam Exam: See Below Free Text/Narrative:: His exam is in the HPI Course - Vital Signs Text/Narrative:: Upper extremities and mottling of the thigh slightly improved after Benadryl. Last Recorded V/S: Last Vital Signs Temp 36.5 C 08/16/20 12:37 Pulse 113 H 08/16/20 12:37 Resp 20 08/16/20 12:37 BP 138/104 H 08/16/20 12:37 Pulse Ox 96 08/16/20 12:37 - Orders/Labs/Meds Orders: Active Orders 24 hr Category Date Time Status CULTURE BLOOD [BC] Stat Lab 08/16/20 13:00 Received CULTURE BLOOD [BC] Stat Lab 08/16/20 13:18 Received Sodium Chloride 0.9% [Saline Flush] Med 08/16/20 12:54 Active 10 ml FLUSH ASDIRECTED PRN Sodium Chloride 0.9% [Saline Flush] Med 08/16/20 12:54 Active 2.5 ml FLUSH ASDIRECTED PRN Blood Culture x2 Reflex Set [OM.PC] Stat Oth 08/16/20 12:55 Ordered Saline Lock Insert [OM.PC] Stat Oth 08/16/20 12:54 Ordered Medication Orders Sodium Chloride (Sodium Chloride 0.9% 10 Ml Syringe) 10 ml FLUSH ASDIRECTED PRN PRN Reason: Keep Vein Open Last Admin: 08/16/20 13:05 Dose: 10 ml Documented by: FERMIN Sodium Chloride (Sodium Chloride 0.9% 2.5 Ml Syringe) 2.5 ml FLUSH ASDIRECTED PRN PRN Reason: Keep Vein Open Last Admin: 08/16/20 13:04 Dose: 2.5 ml Documented by: FERMIN Labs: Laboratory Tests 08/16/20 08/16/20 08/16/20 Range/Units 12:45 12:45 12:45 WBC 8.60 (4.0-11.0) K/uL RBC 4.27 L (4.50-5.90) M/uL Hgb 14.3 (13.0-17.0) g/dL Hct 41.7 (38.0-50.0) % MCV 97.7 (80.0-98.0) fL MCH 33.5 H (27.0-32.0) pg MCHC 34.3 (31.0-37.0) g/dL RDW Std Deviation 53.2 (28.0-62.0) fl RDW Coeff of Miko 15 (11.0-15.0) % Plt Count 459 H (150-400) K/uL MPV 8.90 (7.40-12.00) fL Neut % (Auto) 70.1 (48.0-80.0) % Lymph % (Auto) 15.2 L (16.0-40.0) % Pendleton % (Auto) 11.3 (0.0-15.0) % Eos % (Auto) 2.4 (0.0-7.0) % Baso % (Auto) 1.0 (0.0-1.5) % Neut # (Auto) 6.0 H (1.4-5.7) K/uL Lymph # (Auto) 1.3 (0.6-2.4) K/uL Pendleton # (Auto) 1.0 H (0.0-0.8) K/uL Eos # (Auto) 0.2 (0.0-0.7) K/uL Baso # (Auto) 0.1 (0.0-0.1) K/uL Nucleated RBC % 0.0 /100WBC Nucleated RBCs # 0 K/uL ESR 43 H (0-19) mm/hr Lactate (0.20-2.00) mmol/L Sodium 138 (136-148) mmol/L Potassium 4.3 (3.5-5.1) mmol/L Chloride 101 (98-107) mmol/L Carbon Dioxide 26.6 (21.0-32.0) mmol/L BUN 9 (7.0-18.0) mg/dL Creatinine 0.9 (0.8-1.3) mg/dL Est Cr Clr Drug Dosing 86.56 mL/min Estimated GFR (MDRD) > 60.0 ml/min Glucose 93 (74-106) mg/dL Calcium 8.5 (8.5-10.1) mg/dL Total Bilirubin 0.1 L (0.2-1.0) mg/dL AST 25 (15-37) IU/L ALT 36 (14-63) IU/L Alkaline Phosphatase 76 (46-116) U/L C-Reactive Protein 7.30 H (0.00-0.90) mg/dL Total Protein 8.0 (6.4-8.2) g/dL Albumin 3.0 L (3.4-5.0) g/dL Globulin 5.0 H (2.6-4.0) g/dL Albumin/Globulin Ratio 0.6 L (0.9-1.6) 08/16/20 Range/Units 12:45 WBC (4.0-11.0) K/uL RBC (4.50-5.90) M/uL Hgb (13.0-17.0) g/dL Hct (38.0-50.0) % MCV (80.0-98.0) fL MCH (27.0-32.0) pg MCHC (31.0-37.0) g/dL RDW Std Deviation (28.0-62.0) fl RDW Coeff of Miko (11.0-15.0) % Plt Count (150-400) K/uL MPV (7.40-12.00) fL Neut % (Auto) (48.0-80.0) % Lymph % (Auto) (16.0-40.0) % Pendleton % (Auto) (0.0-15.0) % Eos % (Auto) (0.0-7.0) % Baso % (Auto) (0.0-1.5) % Neut # (Auto) (1.4-5.7) K/uL Lymph # (Auto) (0.6-2.4) K/uL Pendleton # (Auto) (0.0-0.8) K/uL Eos # (Auto) (0.0-0.7) K/uL Baso # (Auto) (0.0-0.1) K/uL Nucleated RBC % /100WBC Nucleated RBCs # K/uL ESR (0-19) mm/hr Lactate 1.2 (0.20-2.00) mmol/L Sodium (136-148) mmol/L Potassium (3.5-5.1) mmol/L Chloride (98-107) mmol/L Carbon Dioxide (21.0-32.0) mmol/L BUN (7.0-18.0) mg/dL Creatinine (0.8-1.3) mg/dL Est Cr Clr Drug Dosing mL/min Estimated GFR (MDRD) ml/min Glucose (74-106) mg/dL Calcium (8.5-10.1) mg/dL Total Bilirubin (0.2-1.0) mg/dL AST (15-37) IU/L ALT (14-63) IU/L Alkaline Phosphatase (46-116) U/L C-Reactive Protein (0.00-0.90) mg/dL Total Protein (6.4-8.2) g/dL Albumin (3.4-5.0) g/dL Globulin (2.6-4.0) g/dL Albumin/Globulin Ratio (0.9-1.6) Meds: Medications Generic Name Dose Route Start Last Admin Trade Name Freq PRN Reason Stop Dose Admin Sodium Chloride 10 ml 08/16/20 12:54 08/16/20 13:05 Sodium Chloride 0.9% 10 Ml Syringe FLUSH 10 ml ASDIRECTED PRN Administration Keep Vein Open Sodium Chloride 2.5 ml 08/16/20 12:54 08/16/20 13:04 Sodium Chloride 0.9% 2.5 Ml Syringe FLUSH 2.5 ml ASDIRECTED PRN Administration Keep Vein Open Discontinued Medications Generic Name Dose Route Start Last Admin Trade Name Freq PRN Reason Stop Dose Admin Dexamethasone 4 mg 08/16/20 13:57 08/16/20 14:07 Dexamethasone 10 Mg/Ml Sdv IVPUSH 08/16/20 13:58 4 mg ONETIME ONE Administration Diphenhydramine HCl 25 mg 08/16/20 13:57 08/16/20 14:08 Diphenhydramine 50 Mg/Ml Sdv IVPUSH 08/16/20 13:58 25 mg ONETIME ONE Administration Departure - Departure Time of Disposition: 14:57 Disposition: Home, Self-Care 01 Condition: Good Clinical Impression: Cellulitis - Discharge Information Prescriptions: diphenhydrAMINE [Benadryl] 25 mg PO Q8H #21 cap Doxycycline [Vibramycin] 100 mg PO BID #28 tab Instructions: Cellulitis, Adult Referrals: PCP,None [Primary Care Provider] - Forms: ED Department Discharge Additional Instructions: [facility] [address] [place] [address] [place] [address] The following information is given to patients seen in the emergency department who are being discharged to home. This information is to outline your options for follow-up care. We provide all patients seen in our emergency department with a follow-up referral. The need for follow-up, as well as the timing and circumstances, are variable depending upon the specifics of your emergency department visit. If you don't have a primary care physician on staff, we will provide you with a referral. We always advise you to contact your personal physician following an emergency department visit to inform them of the circumstance of the visit and for follow-up with them and/or the need for any referrals to a consulting specialist. The emergency department will also refer you to a specialist when appropriate. This referral assures that you have the opportunity for follow-up care with a specialist. All of these measure are taken in an effort to provide you with optimal care, which includes your follow-up. Under all circumstances we always encourage you to contact your private physician who remains a resource for coordinating your care. When calling for follow-up care, please make the office aware that this follow-up is from your recent emergency room visit. If for any reason you are refused follow-up, please contact the [facility] Emergency Department at and asked to speak to the emergency department charge nurse. Sepsis Event Note (ED) - Evaluation Sepsis Screening Result: No Definite Risk - Focused Exam Vital Signs: Vital Signs Temp Pulse Resp BP Pulse Ox 08/16/20 12:37 36.5 C 113 H 20 138/104 H 96 - My Orders Last 24 Hours: My Active Orders 08/16/20 12:54 Sodium Chloride 0.9% [Saline Flush] 10 ml FLUSH ASDIRECTED PRN Sodium Chloride 0.9% [Saline Flush] 2.5 ml FLUSH ASDIRECTED PRN Saline Lock Insert [OM.PC] Stat 08/16/20 12:55 Blood Culture x2 Reflex Set [OM.PC] Stat 08/16/20 13:00 CULTURE BLOOD [BC] Stat 08/16/20 13:18 CULTURE BLOOD [BC] Stat - Assessment/Plan Last 24 Hours: My Active Orders 08/16/20 12:54 Sodium Chloride 0.9% [Saline Flush] 10 ml FLUSH ASDIRECTED PRN Sodium Chloride 0.9% [Saline Flush] 2.5 ml FLUSH ASDIRECTED PRN Saline Lock Insert [OM.PC] Stat 08/16/20 12:55 Blood Culture x2 Reflex Set [OM.PC] Stat 08/16/20 13:00 CULTURE BLOOD [BC] Stat 08/16/20 13:18 CULTURE BLOOD [BC] Stat
[2020-08-16 13:21] LABS: BLOOD UREA NITROGEN,BUN 9 mg/dL (7.0-18.0); CARBON DIOXIDE,CO2 26.6 mmol/L (21.0-32.0); CHLORIDE,CL 101 mmol/L (98-107); GLUCOSE RANDOM 93 mg/dL (74-106); POTASSIUM,K 4.3 mmol/L (3.5-5.1); SODIUM,NA 138 mmol/L (136-148)
[2020-08-16] MEDS ORDERED: diphenhydrAMINE 50 MG/ML SDV IVPUSH ONE (13:57)
[2020-08-16] MEDS ORDERED: Dexamethasone 10 MG/ML SDV IVPUSH ONE (13:57)
--- NOTE | 2020-08-16 13:57 | US ---
CLINICAL HISTORY: 60-year-old with right lower extremity swelling and mottling. TECHNIQUE: Chavez scale, color Doppler, and compression sonography of the right lower extremity deep venous system was performed. COMPARISON: None available FINDINGS: There is no evidence for DVT in the right lower extremity. Color flow, compressibility, and respiratory variation are seen in the right lower extremity deep venous system. There is no intraluminal echogenic material within these veins to suggest thrombus. IMPRESSION: No evidence of DVT in the right lower extremity. Dictated by Enoc Brown MD @ Aug 16 2020 1:54PM Signed by Dr. Enoc Brown @ Aug 16 2020 1:54PM
== END 2020-08-16 15:06 | disposition home or self-care (01) ==
LOC: MW.ED 12:01
DX: L03.115 Cellulitis of right lower limb (principal); I10 Essential (primary) hypertension; J44.9 Chronic obstructive pulmonary disease, unspecified; Z79.899 Other long term (current) drug therapy; Z72.0 Tobacco use
CPT/HCPCS: 36415; 80053; 83605; 85025; 85652; 86140; 87040; 93971; 96374; 96375; 99284; J1100; J1200; 99282

== ENCOUNTER 2021-10-26 22:29 | Emergency (ER) | payer SELFPAY ==
[2021-10-26] MEDS: Sodium Chloride 0.9% 1,000 ML IV SCH (23:18)
[2021-10-26 23:33] LABS: ACETAMINOPHEN <2.0 ug/mL
[2021-10-26 23:37] LABS: BLOOD UREA NITROGEN,BUN 9 mg/dL (7.0-18.0); CARBON DIOXIDE,CO2 23.9 mmol/L (21.0-32.0); CHLORIDE,CL 99 mmol/L (98-107); GLUCOSE RANDOM 109 mg/dL (74-106); POTASSIUM,K 4.3 mmol/L (3.5-5.1); SODIUM,NA 135 mmol/L (136-148)
[2021-10-27] MEDS ORDERED: Norepinephrine 4 MG in Dextrose 5% in Water 246 ML IV SCH ×2 (02:15)
[2021-10-27 02:59] LABS: BLOOD UREA NITROGEN,BUN 9 mg/dL (7.0-18.0); CARBON DIOXIDE,CO2 24.6 mmol/L (21.0-32.0); CHLORIDE,CL 101 mmol/L (98-107); GLUCOSE RANDOM 93 mg/dL (74-106); POTASSIUM,K 4.2 mmol/L (3.5-5.1); SODIUM,NA 136 mmol/L (136-148)
[2021-10-27] MEDS ORDERED: chlordiazePOXIDE 25 MG Cap PO ONE (09:05)
[2021-10-27] MEDS: Sodium Chloride 0.9% 1,000 ML IV SCH (10:05)
== END 2021-10-27 14:13 ==
LOC: MW.ED 22:29
DX: F32.A Depression, unspecified (principal); R45.851 Suicidal ideations; I10 Essential (primary) hypertension; J44.9 Chronic obstructive pulmonary disease, unspecified; Z79.899 Other long term (current) drug therapy; Z20.822 Contact with and (suspected) exposure to COVID-19
CPT/HCPCS: 36415; 80048; 80053; 80143; 80179; 80305-QW; 80307; 84443; 84484; 85025; 93005; 93010; 96365; 96366; 99285; 99285-25; A9270-GY; J7030; U0002

== ENCOUNTER 2022-02-09 11:28 | Emergency (ER) | payer MEDICAID ==
[2022-02-09] MEDS ORDERED: Acetaminophen 325 MG Tab PO ONE (11:39)
[2022-02-09] MEDS ORDERED: Albuterol 0.083% 2.5 MG/3 ML Neb Soln NEB ONE (11:39)
[2022-02-09] MEDS ORDERED: Ibuprofen 400 MG Tab PO ONE (11:39)
[2022-02-09] MEDS ORDERED: Cetirizine 10 MG Tab PO ONE (11:51)
== END 2022-02-09 13:38 | disposition home or self-care (01) ==
LOC: MW.ED 11:28
DX: R06.02 Shortness of breath (principal); I10 Essential (primary) hypertension; J44.9 Chronic obstructive pulmonary disease, unspecified; Z79.899 Other long term (current) drug therapy; Z87.891 Personal history of nicotine dependence
CPT/HCPCS: 99283; A9270

== ENCOUNTER 2022-05-26 14:09 | Emergency (ER) | payer MEDICAID ==
[2022-05-26] MEDS ORDERED: Nicotine 21 MG/24 Hr Patch TRDERM ONE (15:34)
[2022-05-26 15:45] LABS: ACETAMINOPHEN <2.0 ug/mL; BLOOD UREA NITROGEN,BUN 8 mg/dL (7.0-18.0); CARBON DIOXIDE,CO2 28.9 mmol/L (21.0-32.0); CHLORIDE,CL 98 mmol/L (98-107); GLUCOSE RANDOM 96 mg/dL (74-106); POTASSIUM,K 4.1 mmol/L (3.5-5.1); SODIUM,NA 137 mmol/L (136-148)
[2022-05-26 15:47] LABS: ESTIMATED GFR 105 mL/min (>60)
[2022-05-26 16:34] LABS: CORONAVIRUS COVID-19 NAA NEGATIVE (NEGATIVE); INFLUENZA A NAA NEGATIVE (NEGATIVE); INFLUENZA B NAA NEGATIVE (NEGATIVE)
== END 2022-05-26 17:00 | disposition home or self-care (01) ==
LOC: MW.ED 14:09
DX: F32.A Depression, unspecified (principal); F10.929 Alcohol use, unspecified with intoxication, unspecified; I10 Essential (primary) hypertension; J44.9 Chronic obstructive pulmonary disease, unspecified; Z72.0 Tobacco use; Z79.899 Other long term (current) drug therapy; Y90.8 Blood alcohol level of 240 mg/100 ml or more; Z20.822 Contact with and (suspected) exposure to COVID-19
CPT/HCPCS: 0240U; 36415; 80053; 80143; 80179; 80307; 84439; 84443; 84481; 85025; 99285; A9270

== ENCOUNTER 2022-11-23 12:33 | Emergency (ER) | payer MEDICAID ==
[2022-11-23] MEDS ORDERED: Sodium Chloride 0.9% 2.5 ML Syringe FLUSH PRN (13:03)
[2022-11-23] MEDS ORDERED: Albuterol/Ipratropium 3.0-0.5 MG/3 ML Neb Soln NEB ONE (13:03)
[2022-11-23] MEDS ORDERED: Sodium Chloride 0.9% 10 ML Syringe FLUSH PRN (13:03)
[2022-11-23 13:32] LABS: BASOPHILS PERCENT AUTO 0.7 % (0.0-1.5); EOSINOPHILS ABSOLUTE AUTO 0.1 K/uL (0.0-0.7); EOSINOPHILS PERCENT AUTO 1.5 % (0.0-7.0); HEMATOCRIT 44.1 % (38.0-50.0); HEMOGLOBIN 15.5 g/dL (13.0-17.0); LYMPHOCYTES ABSOLUTE AUTO 1.7 K/uL (0.6-2.4); LYMPHOCYTES PERCENT AUTO 30.4 % (16.0-40.0); MEAN CORPUSCULAR HEMOGLOBIN 33.8 pg (27.0-32.0); MEAN CORPUSCULAR HGB CONC 35.1 g/dL (31.0-37.0); MEAN CORPUSCULAR VOLUME 96.3 fL (80.0-98.0); MONOCYTES ABSOLUTE AUTO 0.3 K/uL (0.0-0.8); NEUTROPHILS ABSOLUTE AUTO 3.4 K/uL (1.4-5.7); NEUTROPHILS PERCENT AUTO 61.4 % (48.0-80.0); NRBC ABSOLUTE 0 K/uL; PLATELET COUNT,PLT 263 K/uL (150-400); RED BLOOD CELL COUNT 4.58 M/uL (4.50-5.90); WHITE BLOOD CELL COUNT,WBC 5.49 K/uL (4.0-11.0)
[2022-11-23 13:41] LABS: INR 0.94 (0.86-1.11)
[2022-11-23 14:01] LABS: A/G RATIO 1.1 (0.9-1.6); ALBUMIN 3.7 g/dL (3.4-5.0); BILIRUBIN TOTAL 0.3 mg/dL (0.2-1.0); CALCIUM 8.9 mg/dL (8.5-10.1); CARBON DIOXIDE,CO2 27.4 mmol/L (21.0-32.0); CREATININE 0.9 mg/dL (0.8-1.3); EST CRCL DRUG DOSING (CG) 87.28 mL/min; TSH ULTRASENSITIVE 0.58 uIU/mL (0.36-3.74)
[2022-11-23] MEDS ORDERED: Iopamidol 755 Mg/ML 100 ML Bottle IVPUSH ONE (14:52)
== END 2022-11-23 16:45 | disposition other institution (70) ==
LOC: MW.ED 12:33
DX: K76.0 Fatty (change of) liver, not elsewhere classified (principal); J44.1 Chronic obstructive pulmonary disease with (acute) exacerbation; R91.8 Other nonspecific abnormal finding of lung field; I10 Essential (primary) hypertension; F17.210 Nicotine dependence, cigarettes, uncomplicated; Z79.899 Other long term (current) drug therapy
CPT/HCPCS: 36415; 71275; 74174; 80053; 83690; 83735; 84443; 84484; 85025; 85610; 93005; 99285; J3490; Q9967; 93010; 99284; J7620-GY

== ENCOUNTER 2023-02-15 14:47 | Emergency (ER) | payer MEDICAID | END 2023-02-15 15:31 | disposition left against medical advice (07) | LOC: MW.ED 14:47 | DX: Z53.21 Procedure and treatment not carried out due to patient leaving prior to being seen by health care provider (principal) ==

== ENCOUNTER 2023-02-27 17:10 | Emergency (ER) | payer MEDICAID | END 2023-02-27 20:08 | disposition home or self-care (01) | LOC: MW.ED 17:10 | DX: M70.22 Olecranon bursitis, left elbow (principal); I10 Essential (primary) hypertension; J44.9 Chronic obstructive pulmonary disease, unspecified; Z79.899 Other long term (current) drug therapy | CPT/HCPCS: 73070-26-LT; 73070-LT; 99283 ==

== ENCOUNTER 2023-03-18 18:57 | Emergency (ER) | payer OTHER, MEDICAID ==
[2023-03-18] MEDS ORDERED: Sodium Chloride 0.9% 2.5 ML Syringe FLUSH PRN (19:06)
[2023-03-18] MEDS ORDERED: Sodium Chloride 0.9% 10 ML Syringe FLUSH PRN (19:06)
[2023-03-18] MEDS ORDERED: Lactated Ringers 1,000 ML IV ONE (19:06)
[2023-03-18] MEDS ORDERED: Morphine 4 MG/ML Syringe IVPUSH ONE (19:17)
[2023-03-18] MEDS ORDERED: Iopamidol 755 MG/ML 500 ML Multipack Bottle IVPUSH ONE (19:22)
[2023-03-18 19:30] LABS: HEMOGLOBIN 15.2 g/dL (14.0-18.0); RED BLOOD CELL COUNT 4.49 M/uL (4.52-5.90); WHITE BLOOD CELL COUNT,WBC 6.38 K/uL (3.9-11.3)
[2023-03-18 19:31] LABS: BASOPHILS ABSOLUTE AUTO 0.09 K/uL (0.00-0.20); BASOPHILS PERCENT AUTO 1.4 % (0.0-1.0); EOSINOPHILS ABSOLUTE AUTO 0.17 K/uL (0.00-0.45); EOSINOPHILS PERCENT AUTO 2.7 % (0.0-6.0); IMMATURE GRAN ABSOLUTE AUTO 0.02 K/uL (0.00-0.05); IMMATURE GRAN PERCENT AUTO 0.3 % (0.0-0.4); LYMPHOCYTES ABSOLUTE AUTO 2.82 K/uL (1.00-4.80); LYMPHOCYTES PERCENT AUTO 44.2 % (24.0-44.0); MEAN CORPUSCULAR HEMOGLOBIN 33.9 pg (28.0-32.0); MEAN CORPUSCULAR HGB CONC 35.3 g/dL (32.0-36.0); MEAN CORPUSCULAR VOLUME 95.8 fL (83.0-99.0); MEAN PLATELET VOLUME 9.7 fL (9.4-12.4); MONOCYTES ABSOLUTE AUTO 0.51 K/uL (0.00-0.80); NEUTROPHILS ABSOLUTE AUTO 2.77 K/uL (1.80-7.70); NEUTROPHILS PERCENT AUTO 43.4 % (41.0-71.0); PLATELET COUNT,PLT 332 K/uL (150-400)
[2023-03-18 20:20] LABS: INR 0.95 (0.86-1.11)
[2023-03-18 20:34] LABS: A/G RATIO 1.2 (0.9-1.6); ALBUMIN 3.9 g/dL (3.4-5.0); BILIRUBIN TOTAL 0.2 mg/dL (0.2-1.0); CALCIUM 8.7 mg/dL (8.5-10.1); CARBON DIOXIDE,CO2 26.4 mmol/L (21.0-32.0); CREATININE 0.9 mg/dL (0.8-1.3); EST CRCL DRUG DOSING (CG) 83.39 mL/min; POTASSIUM,K 4.4 mmol/L (3.5-5.1); PROTEIN TOTAL,TP 7.2 g/dL (6.4-8.2)
== END 2023-03-18 21:25 | disposition home or self-care (01) ==
LOC: MW.ED 18:57
DX: F10.929 Alcohol use, unspecified with intoxication, unspecified (principal); I10 Essential (primary) hypertension; J44.9 Chronic obstructive pulmonary disease, unspecified; Z79.899 Other long term (current) drug therapy; V24.49XA Other motorcycle driver injured in collision with heavy transport vehicle or bus in traffic accident, initial encounter; Y92.410 Unspecified street and highway as the place of occurrence of the external cause
CPT/HCPCS: 36415; 70450; 71045; 71260; 72125; 72128; 72131; 74177; 80053; 80307; 83690; 85025; 85610; 86850; 86900; 86901; 96360; 99285; J3490; J7120; Q9967; 99284

== ENCOUNTER 2023-11-01 07:54 | Observation (INO) | payer MEDICAID ==
[2023-11-01] MEDS: Sodium Chloride 0.9% 10 ML Syringe FLUSH PRN (08:22)
[2023-11-01] MEDS: Sodium Chloride 0.9% 2.5 ML Syringe FLUSH PRN (08:22)
[2023-11-01 08:25] LABS: BASOPHILS ABSOLUTE AUTO 0.12 K/uL (0.00-0.20); BASOPHILS PERCENT AUTO 1.9 % (0.0-1.0); EOSINOPHILS ABSOLUTE AUTO 0.13 K/uL (0.00-0.45); HEMATOCRIT 44.2 % (42.0-52.0); HEMOGLOBIN 15.7 g/dL (14.0-18.0); IMMATURE GRAN ABSOLUTE AUTO 0.01 K/uL (0.00-0.05); IMMATURE GRAN PERCENT AUTO 0.2 % (0.0-0.4); LYMPHOCYTES ABSOLUTE AUTO 1.56 K/uL (1.00-4.80); LYMPHOCYTES PERCENT AUTO 24.1 % (24.0-44.0); MEAN CORPUSCULAR HEMOGLOBIN 34.7 pg (28.0-32.0); MEAN CORPUSCULAR HGB CONC 35.5 g/dL (32.0-36.0); MEAN CORPUSCULAR VOLUME 97.8 fL (83.0-99.0); MONOCYTES ABSOLUTE AUTO 0.92 K/uL (0.00-0.80); MONOCYTES PERCENT AUTO 14.2 % (0.0-8.0); NEUTROPHILS ABSOLUTE AUTO 3.73 K/uL (1.80-7.70); NEUTROPHILS PERCENT AUTO 57.6 % (41.0-71.0); PLATELET COUNT,PLT 293 K/uL (150-400); RED BLOOD CELL COUNT 4.52 M/uL (4.52-5.90); WHITE BLOOD CELL COUNT,WBC 6.47 K/uL (3.9-11.3)
[2023-11-01 08:50] LABS: A/G RATIO 1.1 (0.9-1.6); ALBUMIN 3.9 g/dL (3.4-5.0); BILIRUBIN TOTAL 0.4 mg/dL (0.2-1.0); CALCIUM 8.8 mg/dL (8.5-10.1); CARBON DIOXIDE,CO2 26.2 mmol/L (21.0-32.0); EST CRCL DRUG DOSING (CG) 75.05 mL/min; POTASSIUM,K 4.6 mmol/L (3.5-5.1); PROTEIN TOTAL,TP 7.6 g/dL (6.4-8.2)
[2023-11-01] MEDS: predniSONE 20 MG Tab PO ONE (08:52)
[2023-11-01] MEDS: Albuterol/Ipratropium 3.0-0.5 MG/3 ML Neb Soln NEB ONE (08:52)
[2023-11-01] MEDS: Aspirin 325 MG Tab PO ONE (12:45)
[2023-11-01] MEDS: Iopamidol 755 MG/ML 500 ML Multipack Bottle IVPUSH STA (13:34)
[2023-11-01] MEDS: Acetaminophen/HYDROcodone 325-5 MG Tab PO ONE (14:46)
[2023-11-01] MEDS ORDERED: Polyethylene Glycol 3350 Powder 17 GM Packet PO PRN (17:20)
[2023-11-01] MEDS ORDERED: Ondansetron 4 MG Tab.DIS PO PRN (17:20)
[2023-11-01] MEDS ORDERED: Sennosides/Docusate Sodium 50-8.6 MG Tab PO PRN (17:20)
[2023-11-01] MEDS ORDERED: Acetaminophen 325 MG Tab PO PRN (17:20)
[2023-11-01] MEDS ORDERED: Morphine 2 MG/ML SYRINGE IVPUSH PRN (17:20)
[2023-11-01] MEDS ORDERED: Naloxone 0.4 MG/ML SDV IVPUSH PRN (17:20)
[2023-11-01] MEDS ORDERED: Benzonatate 100 MG Cap PO PRN (17:58)
[2023-11-01] MEDS: Lisinopril 10 MG Tab PO SCH (18:15)
[2023-11-01] MEDS: Albuterol/Ipratropium 3.0-0.5 MG/3 ML Neb Soln NEB SCH (18:15)
[2023-11-01] MEDS: cefTRIAXone 1 GM in Sodium Chloride 0.9% 50 ML IV SCH (18:15)
[2023-11-01 21:38] LABS: CORONAVIRUS COVID-19 NAA NEGATIVE (NEGATIVE); INFLUENZA A NAA NEGATIVE (NEGATIVE); INFLUENZA B NAA NEGATIVE (NEGATIVE); RESPIRATORY SYNCYTIAL VIR NAA NEGATIVE (NEGATIVE)
[2023-11-02] MEDS: Ibuprofen 600 MG Tab PO PRN (04:04)
[2023-11-02 06:58] LABS: BASOPHILS ABSOLUTE AUTO 0.06 K/uL (0.00-0.20); BASOPHILS PERCENT AUTO 0.8 % (0.0-1.0); EOSINOPHILS ABSOLUTE AUTO 0.03 K/uL (0.00-0.45); EOSINOPHILS PERCENT AUTO 0.4 % (0.0-6.0); HEMATOCRIT 39.9 % (42.0-52.0); IMMATURE GRAN ABSOLUTE AUTO 0.02 K/uL (0.00-0.05); IMMATURE GRAN PERCENT AUTO 0.3 % (0.0-0.4); LYMPHOCYTES ABSOLUTE AUTO 1.26 K/uL (1.00-4.80); LYMPHOCYTES PERCENT AUTO 15.8 % (24.0-44.0); MEAN CORPUSCULAR HEMOGLOBIN 34.3 pg (28.0-32.0); MEAN CORPUSCULAR HGB CONC 35.1 g/dL (32.0-36.0); MEAN CORPUSCULAR VOLUME 97.8 fL (83.0-99.0); MEAN PLATELET VOLUME 9.2 fL (9.4-12.4); MONOCYTES ABSOLUTE AUTO 0.87 K/uL (0.00-0.80); MONOCYTES PERCENT AUTO 10.9 % (0.0-8.0); NEUTROPHILS ABSOLUTE AUTO 5.73 K/uL (1.80-7.70); NEUTROPHILS PERCENT AUTO 71.8 % (41.0-71.0); PLATELET COUNT,PLT 269 K/uL (150-400); RED BLOOD CELL COUNT 4.08 M/uL (4.52-5.90); WHITE BLOOD CELL COUNT,WBC 7.97 K/uL (3.9-11.3)
[2023-11-02 07:28] LABS: ALBUMIN 3.4 g/dL (3.4-5.0); BILIRUBIN TOTAL 0.7 mg/dL (0.2-1.0); CALCIUM 8.6 mg/dL (8.5-10.1); CARBON DIOXIDE,CO2 26.1 mmol/L (21.0-32.0); CREATININE 0.9 mg/dL (0.8-1.3); EST CRCL DRUG DOSING (CG) 83.7 mL/min; PROTEIN TOTAL,TP 6.7 g/dL (6.4-8.2)
[2023-11-02] MEDS: predniSONE 20 MG Tab PO SCH (08:42)
== END 2023-11-02 13:30 | disposition home or self-care (01) ==
LOC: MW.ED 07:54 → MW.MS 14:17
PROVIDERS: ADMIT Internal Medicine; ATTEND Internal Medicine
DX: J44.1 Chronic obstructive pulmonary disease with (acute) exacerbation (principal); I10 Essential (primary) hypertension; F32.A Depression, unspecified
CPT/HCPCS: 0241U; 36415; 71045; 71275; 80053; 83690; 83880; 84484; 85025; 85379; 93005; 94640; 96365; 99285; A9270; G0378; J0696; J3490; Q9967; 93010; 99222; 99239; 99284; J7620-GY